=== PATIENT | male | born 1960 | race Caucasian/White ===

== ENCOUNTER → 2016-10-18 | Day surgery (SDC) | payer BC ==
[2016-10-03 11:12] VITALS: Ht 185.4 cm; Wt 81.8 kg
[~2016-10-18] VITALS: Ht 185.4 cm; Wt 81.8 kg
[~2016-10-18] MED LIST: ACC10 PO; CHOLTAB3 PO; DICY10CA12 PO; IOPAMIDOL INJ 61% 15 ML VIAL ONE; LATA0.5S OPB; LIDOCAINE HCL 1% MPF 5 ML VIAL ONE; MELO15TA4 PO; NRN/300 PO; OMEG10007 PO; SODIUM CHLORIDE 0.9% INJ 10 ML VIAL ONE
--- NOTE | 2016-10-18 14:15 | History & Physical Bridge - [place] ---
H&P Re-Evaluation Bridge Note: I have examined the patient, reviewed the History & Physical and in the interval since the performance of the History & Physical I have noted the following changes of clinical significance: No changes noted
--- NOTE | 2016-10-18 14:48 | Discharge Instructions ---
Discharge Instructions Date of Service Oct 18, 2016. Visit Reason for Visit: Lumbar Radiculopathy Discharge Discharge Diagnosis / Problem: Right leg pain Discharge Goals Goal(s): Decrease discomfort, Improve function Medications Stopped Medications Name(s): STEPHANIE STOPPED LAST WEEK Activity Recommendations Activity Limitations: resume your previous activity Anesthesia . Post Anesthesia Instructions: If you have had General Anesthesia or IV Sedation: * Do not drive today. * Resume driving when surgeon permits. * Do not make important decisions or sign legal documents today. * Call surgeon for: 1. Temperature elevations greater than 101 degrees F. 2. Uncontrollable pain. 3. Excessive bleeding. 4. Persistent nausea and vomiting. 5. Medication intolerance (nausea, vomiting or rash). * For nausea and vomiting use only clear liquids such as: tea, soda, bouillon until nausea subsides, then gradually increase diet as tolerated. * If you have any concerns or questions, call your surgeon's office. If physician is unavailable and it is an emergency, call 911 or go to the nearest emergency room. . Diet Recommendations Recommended Home Diet: resume previous diet Procedures Procedures Performed: Lumbar Epidural Steroid Injection Pending Studies Studies pending at discharge: no Medical Emergencies . Who to Call and When: Medical Emergencies: If at any time you feel your situation is an emergency, please call 911 immediately. . Non-Emergent Contact Non-Emergency issues call your: Specialist . . "Provider Documentation" section prepared by Quinten Jaimes.
[2016-10-18 14:53] VITALS: BP 124/86; PULSE 89; O2SAT 98
--- NOTE | 2016-10-18 15:02 | OPERATIVE REPORT ---
DATE OF OPERATION: 10/18/2016 PREOPERATIVE DIAGNOSIS: Foraminal stenosis with a right L5 radiculopathy. POSTOPERATIVE DIAGNOSIS: Same. PROCEDURE: Right paramedian L4-L5 interlaminar epidural steroid injection under fluoroscopic guidance. SURGEON: Dr. Quinten Jaimes. INDICATIONS: The patient is a 56-year-old white male who has received an epidural injection in the past for radicular complaints that was done a number of years ago that provided him with long lasting relief. Recently his pain has been increasing despite doing conservative treatment with physical therapy and core exercises. He presents today for an epidural steroid injection to provide him with relief. PHYSICAL EXAMINATION: Pleasant male seated comfortably in no apparent distress. He has no issues of sciatic sensitivity. No issues with forward flexion or extension. Normal lower extremity strength, intact sensation, negative seated straight leg raises. CONSENT: Verbal and written consent was obtained from the patient. Risks and benefits were reviewed. Risks include but are not limited to epidural abscess, epidural hematoma, allergic reaction, dural puncture. The patient wishes to proceed. PROCEDURE: The patient was taken back to the special procedures room of the [facility] where he was maintained in a prone position. Backside was cleansed with Betadine x3 and a dry sterile dressing was applied. Fluoroscope was used to identify the L5-S1 intralaminar space which was opened. L5-S1 was very, very tight and narrowed and significantly restricted. Overlying skin was anesthetized with 4 mL of lidocaine 1% with a 25 gauge 1.5-inch needle. A 22-gauge 3-1/2 inch Tuohy needle was then directed under fluoroscopic guidance into the interlaminar space at L4-L5 and advanced under lateral guidance with a loss of resistance at a depth of 6 cm. Isovue-300 contrast 1 mL was injected in which demonstrated epidural uptake pattern. This was confirmed with both AP and lateral views. He then underwent injection after negative aspiration of 40 mg of Depo-Medrol and 4 mL of preservative free sodium chloride. Injection was well tolerated. DISPOSITION: 1. The patient is taken out into the discharge recovery area where he will be discharged home once discharge criteria have been met. 2. Follow up in the [facility] office in 2-4 weeks. I attest to the content of the Intraoperative Record and any orders documented therein. Any exceptio ns are noted below.
== END | disposition home or self-care (01) ==
LOC: X.SURG 13:12
PROVIDERS: ATTEND Physical Medicine & Rehabilitation
DX: M48.06 Spinal stenosis, lumbar region (principal); M54.16 Radiculopathy, lumbar region

== ENCOUNTER → 2016-11-21 | Outpatient (CLI) | payer BC ==
[~2016-11-21] MED LIST changes: -IOPAMIDOL INJ 61% 15 ML VIAL ONE; -LIDOCAINE HCL 1% MPF 5 ML VIAL ONE; -SODIUM CHLORIDE 0.9% INJ 10 ML VIAL ONE
--- NOTE | 2016-11-21 11:01 | DIAGNOSTIC IMAGING REPORT ---
MRI LUMBAR SPINE W/O CONTRAST CLINICAL HISTORY: Low back pain. Remote history of trauma. TECHNIQUE: Sagittal and axial T1, T2 and STIR images were obtained. The patient was imaged under 0.7 Makenzie open MRI scanner COMPARISON STUDY: MRI the lumbar spine dated July 2011 OBSERVATIONS: The vertebral bodies and posterior elements appear intact. There is no abnormal bony signal present to suggest a marrow replacement process. L1-2: No disc protrusions or extrusions. No evidence of spinal canal or neural foraminal compromise. L2-3: No disc protrusions or extrusions. No evidence of spinal canal or neural foraminal compromise. L3-4: No disc protrusions or extrusions. No evidence of spinal canal or neural foraminal compromise. L4-5: No disc protrusions or extrusions. No evidence of spinal canal or neural foraminal compromise. L5-S1: There is a circumferential disc bulge with associated posterior osteophytes. There is disc narrowing. There is bilateral foraminal narrowing. The conus medullaris and cauda equina appear normal. IMPRESSION: No significant change from the prior 2010 study. Disc bulge with overlying osteophytic spurring at the L5-S1 level. Bilateral foraminal narrowing at the L5-S1 level. No significant spinal stenosis. Electronically signed by: Severiano Villa M.D. 11/21/2016 10:58 AM Dictated Date/Time: 11/21/2016 10:53 AM
== END | disposition home or self-care (01) ==
LOC: C.OPENMRI 09:47
PROVIDERS: ATTEND Physical Medicine & Rehabilitation
DX: M99.83 Other biomechanical lesions of lumbar region (principal)

== ENCOUNTER → 2017-04-22 | Outpatient (CLI) | payer BC | END | disposition home or self-care (01) | LOC: C.RDSM 14:10 | PROVIDERS: ATTEND Physical Medicine & Rehabilitation Sports Medicine | DX: M22.41 Chondromalacia patellae, right knee (principal); M22.42 Chondromalacia patellae, left knee; M17.0 Bilateral primary osteoarthritis of knee ==

== ENCOUNTER 2018-12-03 04:55 | Inpatient (IN) ==
--- NOTE | 2018-11-07 14:45 | PAT Medication Instructions ---
Medication Instructions Date of Service November 07, 2018 Home Medications Probiotic 1 cap PO QPM cholecalciferol (vitamin D3) 400 units PO QAM dicyclomine 10 mg PO TID gabapentin 300 mg PO TID latanoprost 1 drp OPB HS montelukast 10 mg PO PM omega 2-nhx-oxz-fish oil [Fish Oil] 2,000 mg PO QPM amlodipine 10 mg PO QAM diclofenac sodium 75 mg PO QPM ASK your surgeon for instructions diclofenac sodium 75 mg PO QPM STOP taking 2 weeks before surgery omega 1-jlc-sna-fish oil [Fish Oil] 2,000 mg PO QPM If surgery is within 2 weeks, stop taking as soon as possible. DO NOT take the morning of surgery cholecalciferol (vitamin D3) 400 units PO QAM dicyclomine 10 mg PO TID Take morning of surgery With a small sip of water, OTHERWISE NOTHING TO EAT OR DRINK AFTER MIDNIGHT: gabapentin 300 mg PO TID amlodipine 10 mg PO QAM Take evening before surgery Probiotic 1 cap PO QPM dicyclomine 10 mg PO TID gabapentin 300 mg PO TID latanoprost 1 drp OPB HS montelukast 10 mg PO PM Other Notes If you have any questions please call us at [phone] or [phone] or [phone] or [phone]
--- NOTE | 2018-11-10 09:42 | Anesthesiology Consultation ---
Date of Service November 10, 2018 Assessment & Plan (1) Encounter for pre-operative examination: PCP CLEARANCE (ITZEL) 11/13: "Patient is class I risk by RCRItotal risk 3.9%." Chart Review Chart Review: Acceptable Risk for Surgery and Patient seen in Pre Admission Testing Teaching & Discussion Instructed NPO after midnight before surgery, except medications with 15 cc of water. Medication instructions provided according to the PAT guidelines. History Surgery Operation Date: 12/03/18 07:00 Proposed Procedures p Total Knee Arthroplasty - Ruddy Palumbo MD Height/Weight Height: 6 ft 1 in Weight: 86.6 kg Allergies Allergy/AdvReac Type Severity Reaction Status Date / Time codeine Allergy Intermediate VOMITING Verified 11/06/18 08:44 cetirizine Allergy Mild disscoloration Verified 11/06/18 08:44 of skin omeprazole Allergy Mild Rash Verified 11/06/18 08:44 quinapril AdvReac Unknown angioedema Verified 11/06/18 08:44 Medications Home Medications Medication Instructions Recorded Confirmed Last Taken Probiotic 1 cap PO QPM 08/31/18 11/06/18 Unknown cholecalciferol (vitamin D3) 400 units PO QAM 08/31/18 11/06/18 Unknown [Vitamin D3] dicyclomine 10 mg PO TID 08/31/18 11/06/18 Unknown gabapentin 300 mg PO TID 08/31/18 11/06/18 Unknown latanoprost 1 drp OPB HS 08/31/18 11/06/18 Unknown montelukast 10 mg PO PM 08/31/18 11/06/18 Unknown omega 6-rfn-csu-fish oil [Fish Oil] 2,000 mg PO QPM 08/31/18 11/06/18 Unknown amlodipine 10 mg PO QAM 11/06/18 11/06/18 Unknown diclofenac sodium 75 mg PO QPM 11/06/18 11/06/18 Unknown Past Medical History Medical History HTN (hypertension) GERD (gastroesophageal reflux disease) HX Glaucoma Osteoarthritis Past Family History Family History Other Cancer Diabetes Heart disease Hypertension Past Surgical History Surgical History H/O knee surgery OPEN RIGHT H/O nasal septoplasty History of adenoidectomy History of arthroscopy R/L History of gastric surgery Brock fundoplication History of tonsillectomy Past Anesthesia History No Hx of Anesthesia Complications and No Family Hx of Anesthesia Complications 2014 Septoplasty [facility], LMA #5 atraumatic placement, good seal. History of PONV No Motion Sickness Screening History of Motion Sickness: No Social History Smoking Status: Former smoker Do You Dip or Chew Tobacco: No Smoking End Date: QUIT 1991 Hx Alcohol Use: Yes Alcohol type: beer alcohol intake frequency: 0-2 drinks per day Hx Substance Use: No substance use type: does not use Exercise / Class Metabolic Activity II 4-5 Yardwork/Stairs/Walk up hill (denies cp or sob with stairs) Review of Systems Pt denies any recent chest pain, shortness of breath, palpitations, cough, fever or URI. Physical Exam Vital Signs BP: 117/77 P: 94bpm SPO2: 96% RA T: 98.5 F R: 12 ENMT Mouth: no dental restorations, no chipped teeth and no loose teeth Thyromental Distance: < 3.5 Finger Breadths (3) Mallampati Class: I Neck normal visual inspection; neck extension not limited Respiratory normal respiratory effort Auscultation: lungs clear to auscultation bilaterally Cardiovascular Rate/Rhythm: regular rate and regular rhythm Heart Sounds: no murmur Vessels: no carotid bruit Extremities: no edema Testing Electrocardiogram Date: 11/10/18 Findings: + NSR @ (88) Chest X-Ray Date: 11/10/18 Findings: + NAD Laboratory Results 11/10/18 09:52 11/10/18 09:52 Blood Type O Positive 11/10/18 09:52 Antibody Screen NEGATIVE 11/10/18 09:52 PT 10.1 Seconds (9.0-12.0) 11/10/18 09:52 INR 1.0 (0.9-1.1) 11/10/18 09:52 APTT 26.1 Seconds (21.0-31.0) 11/10/18 09:52 Urine Color Yellow 11/10/18 Unknown Urine Appearance Clear (Clear) 11/10/18 Unknown Urine pH 5.0 (4.5-7.5) 11/10/18 Unknown Ur Specific [place] 1.020 (1.000-1.030) 11/10/18 Unknown Urine Protein Negative (Negative) 11/10/18 Unknown Urine Glucose (UA) Negative (Negative) 11/10/18 Unknown Urine Ketones Negative (Negative) 11/10/18 Unknown Urine Nitrite Negative (Negative) 11/10/18 Unknown Ur Leukocyte Esterase Negative (Negative) 11/10/18 Unknown
--- NOTE | 2018-11-10 10:11 | XRay Report ---
XR chest Pre-admission PA/Lat HISTORY: 58 years-old Male p[at preoperative exam. No acute chest complaints COMPARISON: None available TECHNIQUE: PA and lateral views of the chest FINDINGS: Cardiomediastinal and hilar silhouettes are within normal limits. No pneumothorax, pleural effusion, focal airspace consolidation or overt pulmonary edema. Bones of the chest appear grossly intact. IMPRESSION: No acute process. The above report was generated using voice recognition software. It may contain grammatical, syntax o r spelling errors. Electronically signed by: Daniel James M.D. 11/10/2018 10:09 AM
[2018-11-10 11:27] LABS: Basophils # (auto) 0.03 K/uL (0-0.2); Basophils % (auto) 0.5 %; Eosinophils # (auto) 0.36 K/uL (0-0.5); Eosinophils % (auto) 6.3 %; Hematocrit (blood only) 40.6 % (42-52); Hemoglobin 14.6 g/dL (14.0-18.0); Immature Granulocytes # (auto) 0.02 K/uL (0.00-0.02); Immature Granulocytes % (auto) 0.3 %; Lymphocytes # (auto) 1.72 K/uL (1.2-3.4); Mean Corpuscular Volume 89.4 fL (80-100); Monocytes % (auto) 12.2 %; Neutrophils % (auto) 50.7 %; Platelet Count 254 K/uL (130-400); RDW Coefficient of Variation 12.1 % (11.5-14.5); RDW Standard Deviation 39.1 fL (36.4-46.3); Red Blood Count 4.54 M/uL (4.7-6.1); White Blood Count 5.73 K/uL (4.8-10.8)
[2018-11-10 11:34] LABS: BUN Creatinine Ratio 18.3 (10-20); Calcium 9.6 mg/dl (8.5-10.1); Est GFR (African American) 107.3; Est GFR (Non-African American) 92.6; Potassium 4.1 mmol/L (3.5-5.1)
[2018-11-10 11:46] LABS: Partial Thromboplastin Time 26.1 Seconds (21.0-31.0); Prothrombin Time 10.1 Seconds (9.0-12.0)
[2018-11-10 11:51] LABS: Appearance Urine Clear (Clear); Bilirubin Urine Negative (Negative); Blood Urine Negative (Negative); Color Urine Yellow; Glucose Urine UA Negative (Negative); Ketones Urine Negative (Negative); Leukocyte Esterase Urine Negative (Negative); Nitrite Urine Negative (Negative); Protein Urine Negative (Negative); Urobilinogen Urine Negative (Negative)
--- NOTE | 2018-11-19 20:46 | History and Physical Report ---
DATE OF ADMISSION: 12/03/2018 CHIEF COMPLAINT: Right knee pain. HISTORY OF PRESENT ILLNESS: This 58-year-old white male presents to the office with complaints of right knee pain for several years. Symptoms have been present since at least 2013. Pain is worse with activity. It has become worse with time. He has tried oral anti-inflammatories as well as activity modification, cortisone injections, and viscosupplementation injections without lasting improvement. He elects to proceed with right knee total knee arthroplasty in hopes of alleviating his pain. Pain has been affecting his ADLs. It is worse with weightbearing. No numbness or tingling. He does have night pain. Preoperative imaging has been obtained. PAST MEDICAL HISTORY: Significant for hypertension, seborrheic keratosis, tinea versicolor, lumbar back pain, reactive airways disease, lactose tolerance, gluten intolerance, history of glaucoma, GERD, osteoarthritis, and chronic diarrhea. PAST SURGICAL HISTORY: Right knee patellar tendon surgery in 1975, tonsillectomy with adenoidectomy, right knee arthroscopy in 2003 and 2008, cardiac catheterization in April 2000 in [place], Lasik eye surgery, septoplasty, fundoplication in 1998. ALLERGIES: KNOWN ALLERGY TO VERONICA INHIBITORS, CODEINE, PREVACID. CODEINE CAUSES NAUSEA AND VOMITING. PREVACID CAUSED A RASH. VERONICA INHIBITORS CAUSE ANGIOEDEMA. CURRENT MEDICATIONS: Amlodipine 10 mg p.o. daily, dicyclomine 10 mg p.o. q.i.d., latanoprost ophthalmic solution both eyes daily, Mobic 15 mg p.o. daily, Singulair 10 mg p.o. q.p.m., Neurontin 300 mg p.o. t.i.d., omega 3 fatty acids daily, probiotic daily, tramadol 50 mg p.o. q. 12 hours p.r.n., vitamin D3 daily, Voltaren 1% topical gel q.i.d. p.r.n. SOCIAL HISTORY: The patient is . Employed. No tobacco use, daily ETOH use. FAMILY HISTORY: Significant for history of colonic polyps and melanoma. REVIEW OF SYSTEMS: A total of 10 systems were reviewed and are significant for above-stated conditions. PHYSICAL EXAMINATION: GENERAL: Well-developed, well-nourished, middle-aged white male in no acute distress. Sitting on a bed. Alert and oriented. SKIN: Warm and dry with good turgor. No rashes or lesions. No ecchymosis or erythema. Extensive scarring over the anterior right knee. HEENT: Normocephalic, atraumatic. Eyes, PERRLA, EOMI. Nares patent bilaterally without turbinate enlargement. Oropharynx without erythema or exudate. No lesions noted. Uvula midline. Oral mucosa moist. Fair dentition. Fillings are noted. HEART: RRR. No MGR. LUNGS: Clear to auscultation bilaterally. No crackles, rhonchi or wheezing. Good air movement. ABDOMEN: Bowel sounds present x4, soft, nontender. No organomegaly. No masses. MUSCULOSKELETAL: Right knee evaluation reveals no intra-articular effusion. He has focal discomfort with palpation over the medial knee and peripatellar area. No pain laterally. Stable collateral ligaments. No defect in the patellar tendon or quadriceps tendon. He lacks approximately 2-3 degrees of terminal extension. Flexion to greater than 110 degrees. Strength is 5/5 with good quad tone. Ambulatory with a slight antalgic gait. NEUROLOGIC: Gross sensation is intact across the upper and lower extremities by soft touch. Cranial nerves II-XII are intact. DATA: Radiographic imaging previously obtained shows end-stage DJD of the right knee. Significant disease in the patellofemoral and medial compartments. MRI previously obtained shows grade 4 chondral changes in the medial compartment and patellofemoral compartment. IMPRESSION: Right knee end-stage degenerative joint disease. PLAN: Approximately 20 minutes was spent with the patient and his reviewing operative procedure, postoperative recovery, physical therapy requirements, and medication use. Postoperative prescriptions for Percocet and Coumadin will be provided at discharge from the hospital. Anticipate discharge to home with home health services. He would prefer to use crutches and already has a set. I did offer a walker and he declined. Preoperative lab work, EKG, and chest x-ray have been ordered. Medical clearance has been requested from Dr. Paniagua. ELIE
--- OUTSIDE RECORDS SUMMARY | 2018-12-03 04:58 | External Medical Summary | Continuity of Care Document ---
:1960 Author Name David Melendrez Address Unavailable Unavailable , Care Team Providers Name Role Phone Steffi Rand M.D. Unavailable [email or web address] Tony ROBBINS Unavailable Unavailable Unavailable Unavailable Unavailable Problems Allergic rhinitis due to pollen (477.0) (J30.1) Allergic rhinitis due to dust (477.8) (J30.89) Allergic rhinitis due to animal dander (477.2) (J30.81) Visit for pre-operative examination (V72.84) (Z01.818) Essential hypertension (401.9) (I10) Allergies and Adverse Reactions Codeine Derivatives (Allergy) Reaction: Nausea Zithromax TABS (Allergy) Reaction: Nause a ZyrTEC Allergy TABS (Allergy) Reaction: Other Medications Fluticasone Propionate 50 MCG/ACT Nasal Suspension; USE 2 SPRAYS IN EACH NOSTRIL ONCE DAILY Parvin Morales Start: 07-Feb-2015 Quantity: 1 16 GM Bottle Refills: 11 Gabapentin 300 MG Oral Capsule; TAKE 1 CAPSULE 3 TIMES DAILY . Start: 26-Dec-2012 Refills: 0 Meloxicam 15 MG Oral Tablet Start: Refills: 0 Quinapril HCl - 20 MG Oral Tablet; TAKE 1 TABLET DAILY. Refills: 0 Bentyl 10 MG CAPS; TAKE CAPSULE as directed Refills: 0 Montelukast Sodium 10 MG Oral Tablet; TAKE 1 TABLET BY MOUTH EVERY DAY Parvin Rand Start: 08-Feb-2016 Quantity: 30 Refills: 11 Procedures History of Esophagogastric Fundoplasty Sabino Fundoplication Status: Completed History of Arthroscopy Knee Right Status : Completed History of Arthroscopy Knee Left Status: Completed History of Septoplasty Status: Completed History of Submucous Resection Of Turbinate Status: Completed Immunizations Immunizations not documented Family History Father Family history of Chronic Obstructive Pulmonary Disease Stat us: Active Social History - Smoking Status Never smoker Plan of Treatment Planned Encounters Appointment; Anthony Rand M.D. Start: 13-Feb-2019 9:[address] Planned Observations Planned Goals not documented Results No Known Results Results not documented Encounters Appointment; Anthony Rand M.D. 13-Feb-2018 14:45 Encounter Diagnosis: Problem not documented Appointment; Anthony Rand M.D. 07-Feb-2017 9:45 Encounter Diagnosis: Problem not documented Appointment; Anthony Rand M.D. 13-Feb-2019 9:15 Encounter Diagnosis: Problem not documented
[2018-12-03] MEDS ORDERED: TRANEXAMIC ACID 1,000 MG **IV Pre-op IV SCH (06:00)
[2018-12-03] MEDS ORDERED: CEFAZOLIN 2000MG 2,000 MG/15 ML SYR IV SCH (06:00)
[2018-12-03] MEDS ORDERED: LR 60ML/HR IV SCH (06:00)
[2018-12-03] MEDS ORDERED: LR 500ML BOLUS, THEN 15ML/HR IV SCH (06:00)
[2018-12-03] MEDS ORDERED: ROPIVACAINE 0.5% HCL/PF 150 MG, BUPIVACAINE 0.5% MPF 30 ML, EPINEPHrine 0.15 MG, Ketoro... INFIL SCH (06:00)
[2018-12-03] MEDS ORDERED: BUPIVACAINE 0.5 % 5 MG/1 ML PF 10ML VIAL ONE (06:20)
[2018-12-03] MEDS ORDERED: ROPIVACAINE 0.5% 5 MG/ML 30 ML VIAL ONE (06:20)
--- NOTE | 2018-12-03 06:25 | History & Physical Bridge Note ---
Date of Service December 03, 2018 History & Physical Bridge Note I have examined the patient, reviewed the History & Physical and in the interval since the performance of the History & Physical I have noted the following changes of clinical significance: consent obtained.no changes noted
[2018-12-03] MEDS ORDERED: MIDAZOLAM HCL 1 MG/ML 2ML VIAL ONE (06:36)
[2018-12-03] MEDS ORDERED: POVIDONE-IODINE OP SOLN 30 ML BTL ONE (06:36)
[2018-12-03] MEDS ORDERED: ORTHO JOINT ANESTHETIC ONE (06:36)
[2018-12-03] MEDS ORDERED: fentaNYL citrate 100 MCG/2 ML VIAL ONE (06:37)
[2018-12-03] MEDS ORDERED: ePHEDrine sulfate 50 MG/ML AMP IV PRN (07:13)
[2018-12-03] MEDS ORDERED: ONDANSETRON INJ 2 MG/ML 2 ML VIAL IV PRN ×2 (07:13→09:16)
[2018-12-03] MEDS ORDERED: ATROPINE SULFATE 0.1 MG/ML 10ML SYR IV PRN (07:13)
[2018-12-03] MEDS ORDERED: fentaNYL citrate 100 MCG/2 ML VIAL IV PRN (07:13)
[2018-12-03] MEDS ORDERED: PROPOFOL IV EMULSION 10 MG/ML 20 ML VIAL IV ONE (08:00)
[2018-12-03] MEDS ORDERED: LIDOCAINE HCL 2% 2 ML VIAL/AMP(20MG/ML) INFIL ONE (08:00)
--- NOTE | 2018-12-03 08:14 | Post Operative Brief Note ---
Immediate Post Op Note v1 Date of Surgery December 03, 2018 Pre & Post Diagnosis Operation Date: 12/03/18 07:00 Pre-Op Diagnosis: Right Knee Degenerative Joint Disease Post-Op Diagnosis: Right Knee Degenerative Joint Disease Procedure Operation Date: 12/03/18 07:00 Actual Procedures p Right Total Knee Arthroplasty, Cemented(Right) - Ruddy Palumbo MD Surgeon Ruddy Palumbo MD Manager [facility] Estimated Blood Loss 25 Findings Consistent with Post-Op Diagnosis
--- NOTE | 2018-12-03 08:30 | Operative Report ---
Post Operative Report Pre & Post Diagnosis Operation Date: 12/03/18 07:00 Pre-Op Diagnosis: Right Knee Degenerative Joint Disease Post-Op Diagnosis: Right Knee Degenerative Joint Disease Procedure Operation Date: 12/03/18 07:00 Actual Procedures p Right Total Knee Arthroplasty, Cemented(Right) - Ruddy Palumbo MD Surgeon NASIR Palumbo MD General Engineering Teacher sesascha Estimated Blood Loss 25 Findings Consistent with Post-Op Diagnosis Specimens see operative report Drains none Complications none Disposition Accompanied Patient To Recovery: Yes Disposition: Recovery Room Indications This 58-year-old white male presented to the office with complaints of intractable right knee pain. He had tried conservative care measures without improvement. He elected to proceed with surgical intervention after being educated about potential risks and outcomes. Preoperative imaging was obtained. Description of Procedure Patient was administered a spinal anesthetic and was then taken to the operating room where she was given sedation. He was prepped and draped in the usual sterile fashion. Please see Dr. Palumbo's operative report for specifics of the procedure. I was present for the entire case from initial patient positioning through final wound closure. Assistance was provided in tissue retraction, hemostasis, trial implant placement, final implant placement, and final wound closure. Patient was taken to the recovery room in satisfactory condition. I attest to the content of the Intraoperative Record and any orders documented therein. Any exceptions are noted below.
--- NOTE | 2018-12-03 08:43 | XRay Report ---
XR knee RT 2V routine CLINICAL HISTORY: Postoperative evaluation. COMPARISON: Right knee radiographs June 30, 2018. FINDINGS: Alignment of the right knee arthroplasty is anatomic. There is no fracture or unexpected r adiopaque foreign body. There are skin tiburcio. IMPRESSION: Expected findings following total right knee arthroplasty. Electronically signed by: Stephan Millan M.D. 12/03/2018 8:42 AM
--- NOTE | 2018-12-03 08:50 | Anesthesiology Progress Note ---
Date of Service December 03, 2018 Anesthesia Post Procedure Vital Signs Vital Signs: Temp Pulse Pulse Resp BP Pulse Ox 12/03/18 08:40 70 16 112/83 99 12/03/18 08:30 72 12 122/78 100 12/03/18 08:20 97.9 F 84 16 112/73 100 12/03/18 05:40 98.6 F 81 18 143/93 H 98 Transfer of Care Handoff Completed per policy Notes Mental Status: alert / awake / arousable and participated in evaluation Patient Amnestic to Procedure: Yes Nausea / Vomiting: adequately controlled Pain: adequately controlled Airway Patency, RR, SpO2: stable & adequate BP & HR: stable & adequate Hydration State: stable & adequate Neuraxial Anesthesia: was administered and sensory block is resolving Anesthetic Complications: no major complications apparent and Pt Satisfied with anesthetic care
--- NOTE | 2018-12-03 09:09 | Operative Report ---
DATE OF OPERATION: 12/03/2018 SURGEON: Ruddy Palumbo MD INSPECTOR [employer]: Vinny Mitchell PA-C PREOPERATIVE DIAGNOSIS: Osteoarthritis, right knee with significant medial compartment disease. POSTOPERATIVE DIAGNOSIS: Osteoarthritis, right knee with significant medial compartment disease. OPERATION PERFORMED: Cemented right total knee replacement. PERIOPERATIVE SITUATION: Medically cleared male with intractable knee pain with x-rays, physical exam and MRI scan consistent with severe disease. He has failed conservative management for over 10 years. At this point in time, wants to proceed with surgical treatment. Understands risk and consequences. He had previous surgery with a large incision on the knee. This will need to be utilized a higher risk for potential infection and skin problems based on that incision. This was described in detail to him. DESCRIPTION OF PROCEDURE: The patient appropriately identified, site verified, consent verified. Antibiotics confirmed as being given. The right lower extremity was prepped and draped in usual routine fashion. Tourniquet inflated to 275 mmHg after exsanguination of limb with a rubber Esmarch bandage for a total of roughly 41 minutes. The old incision was utilized and slightly extended proximally, it was a curvilinear on the medial aspect of the knee. There were old skin abrasions of about the knee that were all healed. Full thickness flaps were raised. He was quite thin. Parapatellar arthrotomy performed. A lot of scarring noted. This was all released. The synovectomy was completed. Osteophytes around the anterior femur resected. The patella could not be everted secondary to scarring. There was a marked injury to the patellar tendon area. This was all carefully released and the patella everted. Knee was then flexed. The remaining menisci were excised. The lateral compartment was relatively healthy. The medial compartment was grade 4 throughout. Cruciates were abnormal particularly the ACL. The distal femur was then entered and then the cruciates resected. The tibia was subluxated with the remaining menisci excised. There was a big bursa posteromedially. Once the medial remnant of the meniscus was removed, a large Madden cyst was evacuated. The distal femur was then entered with the guide and a 12 mm resector made off the distal femur, a 4 mm section was made at the proximal tibia, and the extension gap was excellent. The distal femur was then sized between a 5 and 4, it was measured 5 cut 4. There was no notching. The flexion gap checked. It was excellent. The posterior capsule was then checked. It was then injected with Orthomix. The box cut was then made and the size 4 femur fit well. The size of the tibia was a 4, appropriate tray placed and broaching and reaming carried out. The trial reduction with a 12.5 spacer revealed excellent mid range flexion stability and no loss of extension. Stability was excellent in extension 30 degrees and 90 degrees. The patella tracked well. The patella was then everted and resected leaving about 16 mm. Seating hole for 41 oval dome 3-peg patella was made and the patella button tracked well. The knee was then injected with the Orthomix. All trial implants were removed, irrigated with Betadine and Pulsavac and Betadine again and then Pulsavac again and then the cemented implants placed. Permanent 1 started with the tibia, femur and then patella. After 12 minutes, the tourniquet deflated. After 14 minutes, the knee was irrigated. Minor bleeding points controlled with electrocautery, minor cement removal required. Wound irrigated one final time with Betadine Pulsavac. EBL was 25 mL. The permanent liner seated. The knee reduced and closed with #2-0 Vicryl and stainless steel clips. Appropriate dressing applied. The patient transferred to recovery room in satisfactory condition having tolerated the procedure well. SUMMARY IMPLANTS: Size 4 right femur, posterior cruciate substituting size 4 mobile bearing tray, oval dome 3-peg patella size 41, tibial insert size 4 12.5 mm thick posterior cruciate substituting, 2 bags of Palacos G cement. EBL 25 mL. DVT prophylaxis with Coumadin and pathology pending on bone. I attest to the content of the Intraoperative Record and any orders documented therein. Any exception s are noted below.
[2018-12-03] MEDS ORDERED: HYDROmorphone INJ 0.5 MG/0.5 ML SYR IV PRN (09:16)
[2018-12-03] MEDS ORDERED: BISACODYL 10 MG SUPP PR PRN (09:16)
[2018-12-03] MEDS ORDERED: METOCLOPRAMIDE HCL INJ 5 MG/ML 2 ML VIAL IV PRN (09:16)
[2018-12-03] MEDS ORDERED: NALOXONE HCL 0.4 MG/1 ML VIAL/CARP IV PRN (09:16)
[2018-12-03] MEDS ORDERED: ALUMINUM/MAGNESIUM SUSP 30 ML UDC PO PRN (09:16)
[2018-12-03] MEDS ORDERED: SODIUM CHLORIDE 0.9% 1000ML 1,000 ML IV SCH (09:16)
[2018-12-03] MEDS ORDERED: TAMSULOSIN HCL 0.4 MG CAP PO PRN (09:16)
[2018-12-03] MEDS ORDERED: DiphenhydrAMINE HCL 50 MG/ML VIAL IV PRN (09:16)
[2018-12-03] MEDS ORDERED: MAGNESIUM HYDROXIDE SUSP 30 ML UDC PO PRN (09:16)
[2018-12-03] MEDS: DICYCLOMINE HCL 10 MG CAP PO SCH ×3 (09:57→20:27)
[2018-12-03] MEDS: MULTIVITAMIN TAB PO SCH (09:57)
[2018-12-03] MEDS: DOCUSATE SODIUM 100 MG CAP PO SCH ×2 (09:57→20:26)
[2018-12-03] MEDS: GABAPENTIN 300 MG CAP PO SCH ×3 (09:57→20:26)
[2018-12-03] MEDS: AMLODIPINE BESYLATE 5 MG TAB PO SCH (09:58)
[2018-12-03] MEDS: KETOROLAC 30 MG/ML VIAL IV SCH ×3 (09:59→21:22)
[2018-12-03] MEDS ORDERED: VANCOMYCIN CONSULT ACTIVE PRN (10:06)
[2018-12-03] MEDS ORDERED: VANCOMYCIN HCL 1,250 MG in SODIUM CHLORIDE 0.9% 250 ML IV SCH (10:45)
[2018-12-03] MEDS: OXYCODONE HCL IR 5 MG TAB (IMMEDIATE RELEASE) PO PRN ×2 (10:46→20:24)
--- NOTE | 2018-12-03 12:59 | Progress Note ---
DATE: 12/03/2018 Postop check, right total knee replacement. The patient is sitting up comfortably in bed using his incentive spirometer. He denies chest pain, shortness of breath, fever, chills, nausea, vomiting or headache. Vital signs are stable. He is afebrile. Neurovascular check, femoral sciatic nerve is normal. He can do a straight leg raise, can do ankle pumps. His wound dressing is clean, dry and intact. Denies any issues. Postop x-rays look excellent. ASSESSMENT: Doing well. Continue with postop care pathway. Mobilize. Hep-Lock IV.
[2018-12-03] MEDS: ACETAMINOPHEN 500 MG TAB PO SCH ×2 (13:33→21:22)
[2018-12-03] MEDS: CEFAZOLIN 2000MG 2,000 MG/15 ML SYR IV SCH ×2 (13:35→22:40)
[2018-12-03] MEDS ORDERED: ORTHO WARFARIN NOMOGRAM SCH (14:00)
[2018-12-03] MEDS ORDERED: TRANEXAMIC ACID 1,000 MG in 0.9 % SODIUM CHLORIDE 100 ML IV SCH (14:30)
[2018-12-03] MEDS ORDERED: WARFARIN SOD 5 MG TAB PO SCH (16:00)
[2018-12-03] MEDS: FERROUS GLUCONATE 324 MG TAB PO SCH (17:28)
[2018-12-03] MEDS ORDERED: LATANOPROST 0.005% OP SOLN 2.5 ML BTL OPB SCH (21:00)
[2018-12-03] MEDS ORDERED: SENNA 8.6 MG TAB PO SCH (21:00)
[2018-12-03] MEDS ORDERED: MONTELUKAST SODIUM 10 MG TABLET PO SCH (21:00)
--- NOTE | 2018-12-03 22:01 | Discharge Summary ---
DATE OF ADMISSION: 12/03/2018 DATE OF DISCHARGE: 12/04/2018 CHIEF COMPLAINT: Right knee pain. HISTORY OF PRESENT ILLNESS: The patient underwent elective right total knee replacement. Hospital course has been uneventful. He will be discharged on 12/04/2018 as long as he does well overnight. PAST MEDICAL HISTORY: Remarkable for hypertension, keratosis, tinea versicolor, lumbar back pain, reactive airway disease, lactose intolerance, gluten intolerance, glaucoma, GERD, osteoarthritis, and chronic diarrhea. PAST SURGICAL HISTORY: Remarkable for patellar tendon surgery in 1975, tonsillectomy, knee arthroscopies, cardiac catheterization, Lasik eye surgery, septoplasty, fundoplication. ALLERGIES: VERONICA INHIBITORS, CODEINE, PREVACID. CURRENT MEDICATIONS: Include amlodipine, dicyclomine, eyedrops, Mobic, Singulair, Neurontin, omega fatty acids, probiotic, tramadol, vitamin D, Voltaren gel, he will discontinue the tramadol and use pain medication as prescribed postop, please see prescription. He will also be on Coumadin, keep INR 1.8-2 on discharge, on 4 mg if INR is less than 1.5 today. FAMILY HISTORY: Not remarkable for any major issues. Has history of colonic polyps. Also has a history of melanoma in the family. REVIEW OF SYSTEMS: Noncontributory. ASSESSMENT: Status post right total knee replacement postop, after looks good. At this point, will be discharged to home. Follow up in 2 weeks for staple removal. Discharge on Coumadin per protocol noted above.
[2018-12-04 04:03] VITALS: O2SAT 96
[2018-12-04] MEDS: OXYCODONE HCL IR 5 MG TAB (IMMEDIATE RELEASE) PO PRN ×2 (04:40→08:53)
[2018-12-04] MEDS: KETOROLAC 30 MG/ML VIAL IV SCH (04:42)
[2018-12-04] MEDS: ACETAMINOPHEN 500 MG TAB PO SCH (05:54)
[2018-12-04 06:01] LABS: Hematocrit (blood only) 29.3 % (42-52); Hemoglobin 10.6 g/dL (14.0-18.0); Mean Corpuscular Hgb Conc 36.2 g/dL (32-36); Mean Platelet Volume 8.8 fL (7.4-10.4); Platelet Count 171 K/uL (130-400); RDW Standard Deviation 38.7 fL (36.4-46.3); Red Blood Count 3.33 M/uL (4.7-6.1); White Blood Count 8.16 K/uL (4.8-10.8)
[2018-12-04 06:23] LABS: Prothrombin Time 10.5 Seconds (9.0-12.0)
--- NOTE | 2018-12-04 06:24 | Progress Note ---
DATE: 12/04/2018 SUBJECTIVE: Postop check status post right total knee replacement. The patient is doing well, has no major issues. Neurovascular check femoral sciatic nerve is normal. He denies chest pain, shortness of breath, fever, chills, nausea, vomiting, or headache. Hematocrit stable at 29. OBJECTIVE: Vital signs excellent. Wound dressing clean, dry and intact. ASSESSMENT: Doing well. Discharged to home today. Discharged on Coumadin 4 mg if INR is less than 1.5, 2 mg if 1.6-1.9 and hold if greater than 2.
[2018-12-04 06:35] LABS: BUN Creatinine Ratio 16.3 (10-20); Calcium 8.6 mg/dl (8.5-10.1); Creatinine Clr Calc Pharmacy 109.6 ml/min; Est GFR (African American) 112.4
[2018-12-04 07:17] VITALS: BP 116/75; TEMP 98.1
[2018-12-04] MEDS ORDERED: dexAMETHasone 10 MG in SYRINGE 0 ML IV SCH (08:00)
[2018-12-04] MEDS: DOCUSATE SODIUM 100 MG CAP PO SCH (08:51)
[2018-12-04] MEDS: DICYCLOMINE HCL 10 MG CAP PO SCH (08:51)
[2018-12-04] MEDS: FERROUS GLUCONATE 324 MG TAB PO SCH (08:51)
[2018-12-04] MEDS: GABAPENTIN 300 MG CAP PO SCH (08:51)
[2018-12-04] MEDS: AMLODIPINE BESYLATE 5 MG TAB PO SCH (08:52)
[2018-12-04] MEDS: MULTIVITAMIN TAB PO SCH (08:52)
[2018-12-04 10:08] VITALS: PULSE 79
[2018-12-04] MEDS ORDERED: WARFARIN SOD 5 MG TAB PO SCH (16:00)
== END 2018-12-04 10:55 | disposition home or self-care (01) | DRG 470 ==
LOC: ASU 04:55 → 3E 08:28